=== PATIENT | female | born 1950 | race African-American/Black ===

== ENCOUNTER → 2016-09-04 | Outpatient (CLI) | payer MEDICARE, OTHER ==
[~2016-09-04] MED LIST: ACTOS15 MG PO; ADVAIR 2501 DISK W/D; ALBUTEROL 0.5ML INH; ALBUTEROL17 GM INH; ALLERGY DROPS; AMARYL2 MG PO; AMITRIPTYLINE H25 MG PO; ASPIRIN PO; BYETTA10 MCG/0.0 INJ; CALAN SR; COMBIVENT INH14.7 GM INH; DARVOCET-N 1001 TAB PO; DUONEB 2.5-0.5 M3 ML; DUONEB 2.5-0.5 M3 ML NEB; FERROUS SULFATE PO; FLEXERIL; GLUCOPHAGE XR500 MG PO; GLUCOTROL PO; GLUCOTROL XL; HCTZ PO; HYDROCODON-ACE1 EAC5 PO; HYDROCODONE-APA1 T42 PO; LANTUS100 U/M1 SQ; LANTUS100 U/M1 SUBQ; LEVAQUIN; LIPITOR PO; LISINOPRIL PO; LORTAB 7.5-5001 TAB PO; LYRICA PO; METFORMIN PO; MIRALAX255 GM; MYSOLINE50 MG PO; OMEPRAZOLE20 M2 PO; PERCOCET7.5 PO; PRILOSEC20 MG PO; PROZAC PO; REGLAN10 MG PO; SINGULAIR PO; SPIRIVA18 MCG INH; ULTRACET TABLET1 TAB; ULTRAM PO; ZANAFLEX PO; ZANAFLEX2 M2 PO; ZETIA PO; [UNRECOGNIZED DRUG - OTHER]
--- NOTE | ~2016-09-04 | US128 ---
[id number] [facility]. [facility] [address] [place], [place] [address] [id number] O MR#: [id number] Acc #: [id number] NAME: RONIT DOMINGUEZ : 1950 SEX: F STUDY DATE/TIME: 09/04/2016 12:07 UNIT: [facility] ROOM: STUDY DESCRIPTION: Thyroid Attending Physician: Lisa Garzon M.D. Referring Physician: Lisa Garzon M.D. Ordering Physician: Lisa Garzon M.D. Primary Care Physician: Lisa Garzon M.D. MEDICAL IMAGING REPORT This report is preliminary unless electronic signature is present EXAM Thyroid ultrasound 09/04/16. CLINICAL HISTORY Nontoxic nodular goiter. COMPARISON Prior ultrasound 01/30/13. FINDINGS In the right lobe of the gland, there is a small hypervascular nodule about 5 mm in size and unchanged since the study of 01/30/13. On the left, no discrete nodules are seen. IMRESSION Solitary right thyroid nodule unchanged since the ultrasound exam of 01/30/13. Gland vascularity is overall normal to diminished. Dictated by... Marc Yung M.D. THIS IS AN ELECTRONICALLY VERIFIED REPORT Marc Yung M.D. at 09/05/2016 3:57 PM HEIKE/branden TD: 09/05/2016 13:18 JOB #: [id number] MEDICAL IMAGING REPORT Page 1 of 1 COPY
== END | disposition home or self-care (01) ==
LOC: CWCC 11:08
DX: E04.9 Nontoxic goiter, unspecified (principal); E04.1 Nontoxic single thyroid nodule
CPT/HCPCS: 76536

== ENCOUNTER → 2016-09-29 | Outpatient (CLI) | payer MEDICARE, OTHER ==
--- NOTE | ~2016-09-29 | US136 ---
[facility] A Service of [facility] & [facility] RADIOLOGY TEXT RESULTS PATIENT: RONIT DOMINGUEZ LOCATION: [facility] : 50 UNIT #: [id number] AGE: [address]: Cheryl Soto APRN SEX: F ORDER DR: [id number] [facility] [address] [place] [address]. [place], [place] [address] [id number] O MR#: [id number] Acc #: [id number] NAME: RONIT DOMINGUEZ : 1950 SEX: F STUDY DATE/TIME: 09/29/2016 12:46 UNIT: [facility] ROOM: STUDY DESCRIPTION: U/L [facility] [employer] [facility] [employer] Bil Attending Physician: Cheryl Soto A.P.R.N. Referring Physician: Cheryl Soto A.P.R.N. Ordering Physician: Cheryl Soto A.P.R.N. Primary Care Physician: Cheryl Soto A.P.R.N. MEDICAL IMAGING REPORT This report is preliminary unless electronic signature is present EXAM Bilateral ankle-brachial indices. HISTORY Peripheral vascular disease. Claudication and rest pain in lower extremities bilaterally. Peripheral edema, of unknown duration. FINDINGS Peak brachial pressures are 101 on the right and 104 on the left. At the right ankle, peak pressures are 117 dorsalis pedis and 129 posterior tibial, for an ankle-brachial index of 1.24 at the posterior tibial and 1.13 at the dorsalis pedis. The great toe pressure is 104 for a toe-brachial index of 1.0. At the left ankle, peak pressures are 125 posterior tibial and 118 dorsalis pedis, for an ankle-brachial index of 1.20 at the posterior tibial and 1.13 at the dorsalis pedis. The left great toe pressure is 65 for a toe-brachial index of 0.63. Pulse volume recordings are unremarkable at the ankles bilaterally. IMPRESSION 1. Normal bilateral ankle-brachial indices measuring 1.24 on the right and 1.20 on the left, indicating no evidence of arterial stenosis in the lower extremities down to the ankles. 2. Slightly diminished left great toe-brachial index of 0.63 indicating mild arterial stenosis in the left foot. 3. Normal right great toe-brachial index of 1.0. Dictated by... Tenzin Loya M.D. [facility] A Service of [facility] RADIOLOGY TEXT RESULTS PATIENT: RONIT DOMINGUEZ LOCATION: [facility] #: [id number] : [birth year] UNIT #: [id number] AGE: [address]: Cheryl Soto APRN SEX: F ORDER DR: THIS IS AN ELECTRONICALLY VERIFIED REPORT Tenzin Loya M.D. at 10/03/2016 2:14 PM DFL/branden TD: 10/03/2016 08:33 JOB #: [id number] MEDICAL IMAGING REPORT Page 1 of 1 COPY
== END | disposition home or self-care (01) ==
LOC: CECH 12:32
DX: I73.9 Peripheral vascular disease, unspecified (principal); R06.02 Shortness of breath; R60.0 Localized edema; I36.1 Nonrheumatic tricuspid (valve) insufficiency; R06.00 Dyspnea, unspecified
CPT/HCPCS: 93306; 93922